=== PATIENT | male | born 1960 | race Caucasian/White ===

== ENCOUNTER 2018-12-20 11:54 | Inpatient (IN) | payer OTHER ==
[~2018-12-20] VITALS: Ht 182.9 cm; Wt 117.2 kg
[~2018-12-20 11:54] MED LIST: BACL10TA PO; BSP10T PO; CHLO500T2 PO; CLOT15CR6 TOP; CYCL10TA9 PO; GBPN300C PO; HYDR-229 PO; HYDR1TAB PO; LISI20TA PO; MUPI15CR TP; NAPR-243 PO; NAPR-915 PO; SULF1TAB35 PO; TRAM50TA2 PO; ZOLP5TAB PO
[2018-12-20] MEDS ORDERED: TRAZ-190 PO (12:11)
[2018-12-20] MEDS ORDERED: ONDA8TAB13 PO (12:11)
[2018-12-20] MEDS ORDERED: CEPH500C PO (12:11)
[2018-12-20] MEDS ORDERED: HYDR-700 PO (12:11)
[2018-12-20] MEDS ORDERED: HYDR-3816 PO (12:11)
[2018-12-20] MEDS ORDERED: fentaNYL INJECTION 100 MCG/2 ML AMP IVP ONE ×2 (13:00→14:00)
[2018-12-20] MEDS ORDERED: ceFAZolin INJECTION 1,000 MG in WATER (STERILE) FOR INJECTION 10 ML IV ONE (13:00)
[2018-12-20 13:09] LABS: BASOPHILS % (AUTO) 0 % (0-10); EOSINOPHILS # (AUTO) 0.3 10^3/uL (0.0-0.3); EOSINOPHILS % (AUTO) 3 % (0-10); HEMATOCRIT 36 % (40-54); HEMOGLOBIN 11.6 G/DL (13.3-17.7); LYMPHOCYTES # (AUTO) 1.1 X 10^3 (1.0-4.0); LYMPHOCYTES % (AUTO) 12 % (12-44); MEAN CORPUSCULAR HEMOGLOBIN 30 PG (25-34); MEAN CORPUSCULAR HGB CONC 32 G/DL (32-36); MEAN CORPUSCULAR VOLUME 95 FL (80-99); MEAN PLATELET VOLUME 10.4 FL (7.4-10.4); MONOCYTES % (AUTO) 11 % (0-12); NEUTROPHILS # (AUTO) 7.1 X 10^3 (1.8-7.8); NEUTROPHILS % (AUTO) 74 % (42-75); PLATELET COUNT 193 10^3/uL (130-400); RED CELL DISTRIBUTION WIDTH 13.5 % (10.0-14.5); WHITE BLOOD COUNT 9.6 10^3/uL (4.3-11.0)
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
[2018-12-20] MEDS ORDERED: LACTATED RINGERS 1,000 ML IV ONE (13:20)
[2018-12-20 13:23] LABS: ALANINE AMINOTRANSFERASE 87 U/L (0-55); ALKALINE PHOSPHATASE 92 U/L (40-136); BILIRUBIN,TOTAL 1.1 MG/DL (0.1-1.0); BUN/CREATININE RATIO 10; CALCIUM 9.8 MG/DL (8.5-10.1); CARBON DIOXIDE 28 MMOL/L (21-32); CHLORIDE 97 MMOL/L (98-107); CREATININE SERUM 1.09 MG/DL (0.60-1.30); GFR ESTIMATED > 60; GLUCOSE 143 MG/DL (70-105); MAGNESIUM 2.1 MG/DL (1.6-2.4); POTASSIUM 4.1 MMOL/L (3.6-5.0); SODIUM 138 MMOL/L (135-145); TOTAL PROTEIN 7.6 GM/DL (6.4-8.2)
[2018-12-20] MEDS ORDERED: VANCOMYCIN INJECTION 1,000 MG in NS (IVPB) 250 ML IV ONE (13:45)
[2018-12-20] MEDS ORDERED: PIPERACILLIN/TAZOBACTAM (BULK) 4.5 GM in NS (IVPB) 100 ML IV ONE (13:45)
[2018-12-20] MEDS ORDERED: KETOROLAC 30 MG/ML VIAL ONE (13:59)
[2018-12-20] MEDS ORDERED: KETOROLAC 30 MG/ML VIAL IVP ONE (14:00)
[2018-12-20] MEDS ORDERED: NS (IVPB) 250 ML ONE (14:33)
[2018-12-20] MEDS ORDERED: VANCOMYCIN 1000 MG/VIAL ONE (14:33)
[2018-12-20] MEDS ORDERED: HYDROcodone/APAP 10 MG/325 MG (LORTAB) TAB PO ONE ×2 (14:37→14:45)
--- NOTE | 2018-12-20 15:55 | NUR ---
PT ARRIVED TO FLOOR VIA CART FROM ED. A/OX4. FAMILY AT BEDSIDE. PT ORIENTED TO ROOM, CALL LIGHT. VSS. PT REPORTS PAIN 10/10. WILL GIVE PRN PAIN MEDICATION. PLAN OF CARE DISCUSSED WITH PT. CALL LIGHT WITHIN REACH.
[2018-12-20 16:00] VITALS: BP 136/86
[2018-12-20] MEDS ORDERED: VANCOMYCIN 1250 MG/NS 250 ML IVPB IV NR ×2 (16:11)
[2018-12-20] MEDS ORDERED: ACETAMINOPHEN 325 MG TABLET PO PRN (16:15)
[2018-12-20] MEDS ORDERED: ONDANSETRON 4 MG/2 ML (SDV) Z0FRAN IVP PRN (16:15)
[2018-12-20] MEDS ORDERED: LACTATED RINGERS 1,000 ML IV SCH (16:30)
[2018-12-20] MEDS: fentaNYL INJECTION 100 MCG/2 ML AMP IVP PRN ×2 (16:45→18:54)
--- NOTE | 2018-12-20 16:50 | NUR ---
PHARMACY TO DOSE VANCOMYCIN. 1G GIVEN IN ED, BOLUS WITH ADDITIONAL 1250MG THEN DOSE AT 1750MG BID. TROUGH ORDERED PRIOR TO 5TH DOSE ON 12/22 @1600 HOLD IF GREATER THAN 20 AND PHARMACY WILL ADJUST.
[2018-12-20 17:09] VITALS: BP 136/86
[2018-12-20] MEDS ORDERED: CALCIUM CARBONATE 500 MG (TUMS) TAB.CHEW PO PRN (17:15)
[2018-12-20] MEDS ORDERED: diphenhydrAMINE 25 MG TAB (BENADRYL) PO PRN (17:15)
[2018-12-20] MEDS ORDERED: IBUPROFEN TABLET 200 MG TAB PO PRN (17:15)
[2018-12-20] MEDS ORDERED: DOCUSATE SODIUM 100 MG (COLACE) CAP PO PRN (17:15)
[2018-12-20 20:00] VITALS: BP 118/68
[2018-12-20] MEDS: TEMAZEPAM 15 MG (RESTORIL) CAP PO PRN (20:47)
[2018-12-20] MEDS: SENNA W/DOCUSATE (SENOKOT S) TABLET PO SCH (20:47)
[2018-12-20] MEDS: traZODone 100 MG (DESYREL) TAB PO PRN (20:47)
[2018-12-20] MEDS: PIPERACILLIN/TAZO 4.5 GM/NS 100 ML IV SCH ×2 (20:48)
[2018-12-20] MEDS: ENOXAPARIN 40 MG/0.4 ML (LOVENOX) SYR SC SCH (20:48)
[2018-12-20] MEDS: NS IV 1000 ML 1,000 ML IV SCH (20:49)
[2018-12-21 00:14] VITALS: BP 130/84
[2018-12-21] MEDS: KETOROLAC 15 MG/ML VIAL IVP PRN ×3 (00:15→20:09)
[2018-12-21] MEDS: HYDROcodone/APAP 5 MG/325 MG (LORTAB) TAB PO PRN ×3 (00:15→14:33)
[2018-12-21 04:37] VITALS: BP 143/90
[2018-12-21] MEDS: PIPERACILLIN/TAZO 4.5 GM/NS 100 ML IV SCH ×6 (04:47→21:18)
[2018-12-21] MEDS: VANCOMYCIN 1,750 MG/NS 500 ML IVPB IV SCH ×4 (04:47→17:11)
[2018-12-21 06:45] LABS: BASOPHILS % (AUTO) 0 % (0-10); EOSINOPHILS # (AUTO) 0.5 10^3/uL (0.0-0.3); EOSINOPHILS % (AUTO) 6 % (0-10); HEMATOCRIT 31 % (40-54); HEMOGLOBIN 9.8 G/DL (13.3-17.7); LYMPHOCYTES # (AUTO) 1.1 X 10^3 (1.0-4.0); LYMPHOCYTES % (AUTO) 15 % (12-44); MEAN CORPUSCULAR HEMOGLOBIN 31 PG (25-34); MEAN CORPUSCULAR HGB CONC 32 G/DL (32-36); MEAN CORPUSCULAR VOLUME 96 FL (80-99); MEAN PLATELET VOLUME 10.3 FL (7.4-10.4); MONOCYTES % (AUTO) 14 % (0-12); NEUTROPHILS # (AUTO) 4.8 X 10^3 (1.8-7.8); NEUTROPHILS % (AUTO) 65 % (42-75); PLATELET COUNT 176 10^3/uL (130-400); RED CELL DISTRIBUTION WIDTH 13.3 % (10.0-14.5); WHITE BLOOD COUNT 7.4 10^3/uL (4.3-11.0)
[2018-12-21 07:07] LABS: ALBUMIN 3.2 GM/DL (3.2-4.5); BILIRUBIN,TOTAL 0.7 MG/DL (0.1-1.0); CALCIUM 8.5 MG/DL (8.5-10.1); CREATININE SERUM 1.92 MG/DL (0.60-1.30); POTASSIUM 3.9 MMOL/L (3.6-5.0); TOTAL PROTEIN 5.9 GM/DL (6.4-8.2)
[2018-12-21 08:00] VITALS: BP 135/85
[2018-12-21] MEDS: SENNA W/DOCUSATE (SENOKOT S) TABLET PO SCH ×2 (08:10→21:21)
[2018-12-21] MEDS: fentaNYL INJECTION 100 MCG/2 ML AMP IVP PRN ×5 (08:11→21:20)
[2018-12-21] MEDS ORDERED: CYCL10TA9 PO (08:21)
[2018-12-21] MEDS ORDERED: OMEP20TA33 PO (08:23)
--- NOTE | 2018-12-21 08:24 | NUR ---
SPOKE WITH THE PATIENT ABOUT HIS MEDICATIONS. WE WENT OVER THE EXT MED HX AND HE VERIFIED HOW HE TAKES THEM. HIS TRAZODONE AND HYDROXYZINE ARE WRITTEN TO TAKE 1/2 TO 1 TABLET, HE STATES HE TAKES 1 WHOLE TABLET OF EACH OF THEM. HE TAKES PRILOSEC OTC NEEDED.
[2018-12-21] MEDS: NS IV 1000 ML 1,000 ML IV SCH ×2 (09:03→21:19)
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
[2018-12-21 12:00] VITALS: BP 162/83
[2018-12-21 15:38] VITALS: BP 124/81
[2018-12-21] MEDS ORDERED: TROUGH ORDER-PHARMACY XX NR (16:00)
[2018-12-21 19:21] VITALS: BP 139/75
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
[2018-12-21] MEDS: ENOXAPARIN 40 MG/0.4 ML (LOVENOX) SYR SC SCH (21:19)
[2018-12-21] MEDS: traZODone 100 MG (DESYREL) TAB PO PRN (21:21)
[2018-12-21] MEDS: ALPRAZolam 0.25 MG (XANAX) TAB PO PRN (21:21)
[2018-12-22 00:20] VITALS: BP 135/75
[2018-12-22] MEDS: fentaNYL INJECTION 100 MCG/2 ML AMP IVP PRN ×5 (01:56→20:20)
[2018-12-22] MEDS: MELATONIN 3 MG TABLET PO PRN (01:56)
[2018-12-22] MEDS ORDERED: TROUGH ORDER-PHARMACY XX NR (04:00)
[2018-12-22 04:55] VITALS: BP 134/75
[2018-12-22] MEDS: HYDROcodone/APAP 5 MG/325 MG (LORTAB) TAB PO PRN (05:15)
[2018-12-22 05:25] LABS: BASOPHILS % (AUTO) 0 % (0-10); EOSINOPHILS # (AUTO) 0.6 10^3/uL (0.0-0.3); EOSINOPHILS % (AUTO) 8 % (0-10); HEMATOCRIT 29 % (40-54); HEMOGLOBIN 9.6 G/DL (13.3-17.7); LYMPHOCYTES % (AUTO) 14 % (12-44); MEAN CORPUSCULAR HEMOGLOBIN 31 PG (25-34); MEAN CORPUSCULAR HGB CONC 33 G/DL (32-36); MEAN CORPUSCULAR VOLUME 96 FL (80-99); MEAN PLATELET VOLUME 10.1 FL (7.4-10.4); MONOCYTES # (AUTO) 0.9 X 10^3 (0.0-1.0); MONOCYTES % (AUTO) 13 % (0-12); NEUTROPHILS # (AUTO) 4.4 X 10^3 (1.8-7.8); NEUTROPHILS % (AUTO) 64 % (42-75); PLATELET COUNT 198 10^3/uL (130-400); RED CELL DISTRIBUTION WIDTH 13.5 % (10.0-14.5); WHITE BLOOD COUNT 6.8 10^3/uL (4.3-11.0)
[2018-12-22 05:47] LABS: ALBUMIN 3.1 GM/DL (3.2-4.5); BILIRUBIN,TOTAL 0.7 MG/DL (0.1-1.0); CALCIUM 8.4 MG/DL (8.5-10.1); CREATININE SERUM 2.29 MG/DL (0.60-1.30); POTASSIUM 3.6 MMOL/L (3.6-5.0); TOTAL PROTEIN 5.9 GM/DL (6.4-8.2)
[2018-12-22] MEDS: PIPERACILLIN/TAZO 4.5 GM/NS 100 ML IV SCH ×6 (05:53→20:19)
[2018-12-22] MEDS: VANCOMYCIN 1,750 MG/NS 500 ML IVPB IV SCH ×2 (06:00)
[2018-12-22] MEDS: NS IV 1000 ML 1,000 ML IV SCH ×3 (07:30→22:49)
[2018-12-22] MEDS: SENNA W/DOCUSATE (SENOKOT S) TABLET PO SCH ×2 (07:34→20:20)
[2018-12-22 08:00] VITALS: BP 166/97
[2018-12-22] MEDS: fentaNYL PATCH 25 MCG (DURAGESIC) TD SCH (09:21)
[2018-12-22 12:00] VITALS: BP 166/97
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
[2018-12-22] MEDS: oxyCODONE/APAP 5/325MG (PERCOCET 5) TABLET PO PRN ×2 (12:32→17:31)
--- NOTE | 2018-12-22 15:15 | NUR ---
Pastoral care visit.
[2018-12-22 16:00] VITALS: BP 159/94
[2018-12-22] MEDS: KETOROLAC 15 MG/ML VIAL IVP PRN (17:39)
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
[2018-12-22 19:45] VITALS: BP 137/76
[2018-12-22] MEDS: ENOXAPARIN 40 MG/0.4 ML (LOVENOX) SYR SC SCH (20:19)
[2018-12-23 00:10] VITALS: BP 169/91
[2018-12-23] MEDS: oxyCODONE/APAP 5/325MG (PERCOCET 5) TABLET PO PRN ×5 (00:21→20:33)
[2018-12-23] MEDS: fentaNYL INJECTION 100 MCG/2 ML AMP IVP PRN ×5 (03:17→23:43)
[2018-12-23] MEDS: ALPRAZolam 0.25 MG (XANAX) TAB PO PRN ×2 (03:29→20:37)
[2018-12-23 04:00] VITALS: BP 137/82
[2018-12-23] MEDS: PIPERACILLIN/TAZO 4.5 GM/NS 100 ML IV SCH ×6 (04:17→20:34)
[2018-12-23] MEDS: KETOROLAC 15 MG/ML VIAL IVP PRN (05:44)
[2018-12-23 06:00] LABS: BASOPHILS % (AUTO) 0 % (0-10); EOSINOPHILS # (AUTO) 0.4 10^3/uL (0.0-0.3); EOSINOPHILS % (AUTO) 5 % (0-10); HEMATOCRIT 30 % (40-54); HEMOGLOBIN 9.8 G/DL (13.3-17.7); LYMPHOCYTES # (AUTO) 1.2 X 10^3 (1.0-4.0); LYMPHOCYTES % (AUTO) 17 % (12-44); MEAN CORPUSCULAR HEMOGLOBIN 31 PG (25-34); MEAN CORPUSCULAR HGB CONC 33 G/DL (32-36); MEAN CORPUSCULAR VOLUME 95 FL (80-99); MEAN PLATELET VOLUME 9.5 FL (7.4-10.4); MONOCYTES # (AUTO) 0.9 X 10^3 (0.0-1.0); MONOCYTES % (AUTO) 12 % (0-12); NEUTROPHILS # (AUTO) 4.7 X 10^3 (1.8-7.8); NEUTROPHILS % (AUTO) 65 % (42-75); PLATELET COUNT 235 10^3/uL (130-400); RED CELL DISTRIBUTION WIDTH 13.3 % (10.0-14.5); WHITE BLOOD COUNT 7.2 10^3/uL (4.3-11.0)
[2018-12-23 06:19] LABS: ALBUMIN 3.4 GM/DL (3.2-4.5); BILIRUBIN,TOTAL 0.7 MG/DL (0.1-1.0); CALCIUM 8.9 MG/DL (8.5-10.1); CREATININE SERUM 2.3 MG/DL (0.60-1.30); POTASSIUM 3.8 MMOL/L (3.6-5.0); TOTAL PROTEIN 6.4 GM/DL (6.4-8.2)
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
[2018-12-23 08:30] VITALS: BP 135/91
[2018-12-23] MEDS: SENNA W/DOCUSATE (SENOKOT S) TABLET PO SCH ×2 (08:51→20:33)
[2018-12-23] MEDS: NS IV 1000 ML 1,000 ML IV SCH ×2 (08:53→17:58)
[2018-12-23 12:00] VITALS: BP 144/86
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
--- NOTE | 2018-12-23 14:21 | Diagnostic Imaging Report ---
PROCEDURE: US left lower extremity venous. TECHNIQUE: Multiple real-time grayscale images were obtained over the left lower extremity in various projections. Additional duplex Doppler and color Doppler images were also obtained. INDICATION: Left leg swelling. FINDINGS: There is no evidence of a left lower extremity DVT. Left lower extremity deep venous system shows normal compressibility with normal response to augmentation and Valsalva. No fluid collection or mass is seen. There is some subcutaneous edema in the anterior left ankle region at the area of bruising. IMPRESSION: 1. No evidence of left lower extremity DVT. 2. Left ankle subcutaneous edema. Dictated by: Dictated on workstation # [id number]
--- NOTE | 2018-12-23 15:39 | Occ Therapy Progress Note ---
Therapy Progress Note OT talked with pt about his current performance with ADLs, pt reported he is able to get shorts on if he needed to, he can get out of bed and manage the IV pole to the bathroom, and he is able to complete oral hygiene without any issues. Pt concerned with ability to complete dressing, stating he is currently unable to put a shirt on secondary to the wounds on his arms limiting his ROM and increasing his pain. Pt was able to independently sit EOB, and manage IV manan e to the bathroom with no assistive device, and return to the bed to lay down without assistance from OT, no concerns noted with functional mobility and balance. Pt bent his right elbow to approximately 100 degrees flexion, this motion caused the wound on his elbow to open, bleeding slightly. Pt reported pain 10/10 after performing functional mobility to bathroom and returning to b ed, nursing notified of pain and wound. Pt laying in bed with call light in reach and nursing present, all needs met. Skilled OT services are not appropriate at this time secondary to UE movements causing wounds to reopen, pt in agreement indicating that he believes he will be able to complete all ADLs without issues once wounds are healed and his pain was under control, he states he has no further concerns at this time. 1, visit TATIANA LINDA OT Dec 23, 2018 15:39
[2018-12-23 16:00] VITALS: BP 145/98
[2018-12-23 20:16] VITALS: BP 149/95
[2018-12-23] MEDS: ENOXAPARIN 40 MG/0.4 ML (LOVENOX) SYR SC SCH (20:34)
[2018-12-23] MEDS: traZODone 100 MG (DESYREL) TAB PO PRN (20:37)
[2018-12-23] MEDS: TEMAZEPAM 15 MG (RESTORIL) CAP PO PRN (23:43)
[2018-12-24] VITALS (7 sets, daily range): BP systolic 135–178; BP diastolic 77–98
[2018-12-24] MEDS: oxyCODONE/APAP 5/325MG (PERCOCET 5) TABLET PO PRN ×5 (02:10→21:29)
[2018-12-24] MEDS: NS IV 1000 ML 1,000 ML IV SCH ×3 (04:38→21:45)
[2018-12-24] MEDS: PIPERACILLIN/TAZO 4.5 GM/NS 100 ML IV SCH ×6 (04:38→20:01)
[2018-12-24 05:19] LABS: BASOPHILS % (AUTO) 0 % (0-10); EOSINOPHILS # (AUTO) 0.3 10^3/uL (0.0-0.3); EOSINOPHILS % (AUTO) 4 % (0-10); HEMATOCRIT 28 % (40-54); HEMOGLOBIN 9.2 G/DL (13.3-17.7); LYMPHOCYTES # (AUTO) 0.8 X 10^3 (1.0-4.0); LYMPHOCYTES % (AUTO) 13 % (12-44); MEAN CORPUSCULAR HEMOGLOBIN 31 PG (25-34); MEAN CORPUSCULAR HGB CONC 33 G/DL (32-36); MEAN CORPUSCULAR VOLUME 94 FL (80-99); MEAN PLATELET VOLUME 9.7 FL (7.4-10.4); MONOCYTES % (AUTO) 15 % (0-12); NEUTROPHILS # (AUTO) 4.3 X 10^3 (1.8-7.8); NEUTROPHILS % (AUTO) 68 % (42-75); PLATELET COUNT 264 10^3/uL (130-400); RED CELL DISTRIBUTION WIDTH 13.2 % (10.0-14.5); WHITE BLOOD COUNT 6.4 10^3/uL (4.3-11.0)
[2018-12-24 06:03] LABS: ALBUMIN 3.1 GM/DL (3.2-4.5); BILIRUBIN,TOTAL 0.6 MG/DL (0.1-1.0); CALCIUM 8.8 MG/DL (8.5-10.1); CREATININE SERUM 2.06 MG/DL (0.60-1.30); POTASSIUM 3.7 MMOL/L (3.6-5.0); TOTAL PROTEIN 5.9 GM/DL (6.4-8.2)
[2018-12-24] MEDS: fentaNYL INJECTION 100 MCG/2 ML AMP IVP PRN ×5 (06:51→20:02)
[2018-12-24] MEDS: KETOROLAC 15 MG/ML VIAL IVP PRN ×2 (08:49→23:59)
[2018-12-24] MEDS: ALPRAZolam 0.25 MG (XANAX) TAB PO PRN ×2 (09:21→21:28)
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
--- NOTE | 2018-12-24 12:48 | Progress Note - Ortho ---
Progress Note Subjective Date of Exam 12/24/18 Chief Complaint Same HPI/Events since last exam Same Review of Systems Unchanged Allergies: Coded Allergies: codeine (Verified Allergy, Unknown, 12/08/15) Home Meds Reported Medications Omeprazole Magnesium (Prilosec Otc) 20 Mg Tablet.dr, 20 MG PO DAILY PRN for HEARTBURN, TAB 12/21/18 Cyclobenzaprine HCl (Cyclobenzaprine HCl) 10 Mg Tablet, 10 MG PO Q6H PRN for MUSCLE SPASMS, TAB 12/21/18 Trazodone HCl (Trazodone HCl) 100 Mg Tablet, 100 MG PO HS, TAB 12/20/18 Hydroxyzine HCl (Hydroxyzine HCl) 25 Mg Tablet, 25 MG PO BID PRN for ANXIETY, TAB 12/20/18 Hydrocodone/Acetaminophen (Hydrocodone-Acetamin 7.5-325) 1 Each Tablet, 1 TAB PO Q6H PRN for PAIN-MODERATE, TAB 12/20/18 Ondansetron (Ondansetron Odt) 8 Mg Tab.rapdis, 8 MG PO Q12H PRN for NAUSEA/VOMITING-1ST LINE, TAB 12/20/18 Cephalexin (Cephalexin) 500 Mg Capsule, 500 MG PO Q12H for 10 Days, CAP 10 DAY SUPPLY FILLED 12-17-18 12/20/18 Discontinued Reported Medications Baclofen (Baclofen) 10 Mg Tablet, PO UD, TAB 12/08/15 Zolpidem Tartrate (Ambien) 5 Mg Tablet, PO UD, TAB 12/08/15 Discontinued Scripts Sulfamethoxazole/Trimethoprim (Bactrim Ds Tablet) 1 Each Tablet, 1 EACH PO BID, #20 TAB Prov:ANGELA VALIENTE DO 12/08/15 Mupirocin Calcium (Bactroban) 15 Gm Cream..g., 15 GM TP BID, #22 TUBE Prov:STEFFANIEANGELA K DO 12/08/15 Cyclobenzaprine HCl (Cyclobenzaprine HCl) 10 Mg Tablet, 10 MG PO Q8H, #15 TAB Prov:STEFFANIEANGELA K DO 12/08/15 Naproxen (Naproxen) 500 Mg Tablet, 500 MG PO BID, #20 TAB Prov:ANGELA VALIENTE K DO 12/08/15 Objective Exam Constitutional: [] HEENT: [] Neck: [] Cardiovascular: [] Respiratory: [] Gastrointestinal: [] Genitourinary: [] Skin: [] Back/Spine: [] Extremities: [] Neurologic: [] Psychiatric: [] Hematologic/lymphatic/immunologic: [] No change Vital Signs Vital Signs Date Time Temp Pulse Resp B/P (MAP) Pulse Ox O2 Delivery O2 Flow Rate FiO2 12/24/18 11:57 36.9 78 20 170/90 (116) 95 Room Air 12/24/18 08:30 37.0 71 20 135/77 (96) 95 Room Air 12/24/18 04:55 36.5 96 20 150/86 (107) 73 Room Air 12/24/18 00:46 37.4 80 20 160/91 (114) 98 Room Air 12/23/18 21:00 Room Air 12/23/18 20:16 37.0 79 18 149/95 (113) 98 Room Air 12/23/18 16:00 37.0 80 20 145/98 (114) 97 Room Air I & O 12/24/18 07:00 Intake Total 2380 ml Balance 2380 ml Lab Results Laboratory Tests 12/24/18 04:30: White Blood Count 6.4, Red Blood Count 2.99L, Hemoglobin 9.2L, Hematocrit 28L, Mean Corpuscular Volume 94, Mean Corpuscular Hemoglobin 31, Mean Corpuscular Hemoglobin Concent 33, Red Cell Distribution Width 13.2, Platelet Count 264, Mean Platelet Volume 9.7, Neutrophils (%) (Auto) 68, Lymphocytes (%) (Auto) 13, Monocytes (%) (Auto) 15H, Eosinophils (%) (Auto) 4, Basophils (%) (Auto) 0, Neutrophils # (Auto) 4.3, Lymphocytes # (Auto) 0.8L, Monocytes # (Auto) 1.0, Eosinophils # (Auto) 0.3, Basophils # (Auto) 0.0, Sodium Level 141, Potassium Level 3.7, Chloride Level 107, Carbon Dioxide Level 22, Anion Gap 12, Blood Urea Nitrogen 18, Creatinine 2.06H, Estimat Glomerular Filtration Rate 33, BUN/Creatinine Ratio 9, Glucose Level 116H, Calcium Level 8.8, Corrected Calcium 9.5, Total Bilirubin 0.6, Aspartate Amino Transf (AST/SGOT) 31, Alanine Aminotransferase (ALT/SGPT) 38, Alkaline Phosphatase 98, Total Protein 5.9L, Albumin 3.1L Assessment and Plan Assessment No change Problem List No change Plan I was able to obtain records from [facility] from the ER visit of 12/16/2018. Mainly I was looking at the x-ray reports The CT scan of the head was negative for acute intracranial abnormality CT cervical spine showed narrowing of the disc spaces particularly C5-6 through C7-T1 with multilevel anterior and posterior vertebral body osteophytes. Also changes were noted at the uncovertebral and facet joints. No fractures were noted CT scan of the chest with contrast showed a small focal anterior pericardial effusion [address] scan abdomen and pelvis with contrast showed a right pelvic subcutaneous bruising and an ill-defined hematoma lateral to the right gluteal musculature. Also degenerative disc disease of the lumbar spine was noted at L1-2L4-5 Chest x-ray 1 view was negative for acute pulmonary disease X-ray left ankle showed no fractures was a fractured pin noted in the midfoot region X-ray left tibia and fibula show [id number] degenerative changes about the knee with no evidence of tibia or fibular fracture X-rays left knee showed mild to moderate degenerative changes with narrowing of the medial compartment with no fracture X-ray of the pelvis showed no fractures. Mild degenerative changes seen at both hips The x-rays were interpreted by Dr. Ousmane Foster and the CT scans were interpreted by Dr.Nidal Marisa ROTHMAN Also the laceration of the left knee was sutured and also a laceration of the right elbow was sutured Final Diagonsis same Level of the visit: Level 3 Clinical Quality Measures DVT/VTE Risk/Contraindication: Risk Factor Score Per Nursin RFS Level Per Nursing on Admit: 2=Moderate BOWEN GALLARDO MD Dec 24, 2018 12:48
[2018-12-24] MEDS: SENNA W/DOCUSATE (SENOKOT S) TABLET PO SCH ×3 (15:21→20:33)
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
[2018-12-24] MEDS: ENOXAPARIN 40 MG/0.4 ML (LOVENOX) SYR SC SCH (20:02)
[2018-12-24] MEDS: traZODone 100 MG (DESYREL) TAB PO PRN (21:29)
[2018-12-24] MEDS: TEMAZEPAM 15 MG (RESTORIL) CAP PO PRN (23:59)
[2018-12-25 00:37] VITALS: BP 155/86
[2018-12-25 04:45] VITALS: BP 157/90
[2018-12-25] MEDS: oxyCODONE/APAP 5/325MG (PERCOCET 5) TABLET PO PRN ×3 (05:26→17:18)
[2018-12-25] MEDS: PIPERACILLIN/TAZO 4.5 GM/NS 100 ML IV SCH ×4 (05:26→14:00)
[2018-12-25 05:50] LABS: BASOPHILS % (AUTO) 0 % (0-10); EOSINOPHILS # (AUTO) 0.3 10^3/uL (0.0-0.3); EOSINOPHILS % (AUTO) 5 % (0-10); HEMATOCRIT 28 % (40-54); HEMOGLOBIN 8.9 G/DL (13.3-17.7); LYMPHOCYTES % (AUTO) 17 % (12-44); MEAN CORPUSCULAR HEMOGLOBIN 30 PG (25-34); MEAN CORPUSCULAR HGB CONC 32 G/DL (32-36); MEAN CORPUSCULAR VOLUME 94 FL (80-99); MEAN PLATELET VOLUME 9.7 FL (7.4-10.4); MONOCYTES # (AUTO) 0.8 X 10^3 (0.0-1.0); MONOCYTES % (AUTO) 14 % (0-12); NEUTROPHILS # (AUTO) 3.7 X 10^3 (1.8-7.8); NEUTROPHILS % (AUTO) 64 % (42-75); PLATELET COUNT 290 10^3/uL (130-400); RED CELL DISTRIBUTION WIDTH 12.9 % (10.0-14.5); WHITE BLOOD COUNT 5.7 10^3/uL (4.3-11.0)
[2018-12-25 06:09] LABS: ALBUMIN 3.3 GM/DL (3.2-4.5); BILIRUBIN,TOTAL 0.6 MG/DL (0.1-1.0); CALCIUM 8.7 MG/DL (8.5-10.1); CREATININE SERUM 1.98 MG/DL (0.60-1.30); POTASSIUM 3.6 MMOL/L (3.6-5.0)
[2018-12-25 08:00] VITALS: BP 165/86
[2018-12-25] MEDS: SENNA W/DOCUSATE (SENOKOT S) TABLET PO SCH ×3 (08:26→21:54)
[2018-12-25] MEDS: KETOROLAC 15 MG/ML VIAL IVP PRN (08:27)
[2018-12-25] MEDS: fentaNYL PATCH 25 MCG (DURAGESIC) TD SCH (08:27)
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
[2018-12-25] MEDS ORDERED: FENTANYL PATCH REMOVAL TP SCH (08:59)
[2018-12-25] MEDS: NS IV 1000 ML 1,000 ML IV SCH ×2 (10:14→20:15)
--- NOTE | 2018-12-25 11:34 | Physical Therapy Progress Note ---
Therapy Progress Note Patient is up independently in [facility]. PT to dismiss patient from services at this time. SATURNINO HOWARD PT Dec 25, 2018 11:34
--- NOTE | 2018-12-25 11:58 | NUR ---
IRF Evaluation Order received to evaluate patient for the ARU. According to PT, patient is up independently in the hallway; therefore, patient does not require intensive therapies, at this time. Thank you for this referral.
[2018-12-25 12:00] VITALS: BP 150/85
[2018-12-25 16:00] VITALS: BP 160/88
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
[2018-12-25] MEDS: fentaNYL INJECTION 100 MCG/2 ML AMP IVP PRN (20:30)
[2018-12-25] MEDS: TEMAZEPAM 15 MG (RESTORIL) CAP PO PRN (21:54)
[2018-12-25] MEDS: ENOXAPARIN 40 MG/0.4 ML (LOVENOX) SYR SC SCH (21:54)
[2018-12-25] MEDS: ALPRAZolam 0.25 MG (XANAX) TAB PO PRN (21:54)
[2018-12-25] MEDS: traZODone 100 MG (DESYREL) TAB PO PRN (21:54)
[2018-12-26] VITALS: BP 153/88
[2018-12-26] MEDS: oxyCODONE/APAP 5/325MG (PERCOCET 5) TABLET PO PRN ×3 (03:13→13:43)
[2018-12-26] MEDS: MELATONIN 3 MG TABLET PO PRN (03:14)
[2018-12-26] MEDS: NS IV 1000 ML 1,000 ML IV SCH (05:30)
[2018-12-26 06:34] LABS: BASOPHILS % (AUTO) 0 % (0-10); EOSINOPHILS # (AUTO) 0.4 10^3/uL (0.0-0.3); EOSINOPHILS % (AUTO) 5 % (0-10); HEMATOCRIT 28 % (40-54); HEMOGLOBIN 8.8 G/DL (13.3-17.7); LYMPHOCYTES # (AUTO) 1.1 X 10^3 (1.0-4.0); LYMPHOCYTES % (AUTO) 15 % (12-44); MEAN CORPUSCULAR HEMOGLOBIN 30 PG (25-34); MEAN CORPUSCULAR HGB CONC 32 G/DL (32-36); MEAN CORPUSCULAR VOLUME 94 FL (80-99); MEAN PLATELET VOLUME 9.5 FL (7.4-10.4); MONOCYTES % (AUTO) 14 % (0-12); NEUTROPHILS # (AUTO) 4.8 X 10^3 (1.8-7.8); NEUTROPHILS % (AUTO) 67 % (42-75); PLATELET COUNT 341 10^3/uL (130-400); RED CELL DISTRIBUTION WIDTH 13.1 % (10.0-14.5); WHITE BLOOD COUNT 7.2 10^3/uL (4.3-11.0)
[2018-12-26 07:00] LABS: ALBUMIN 3.3 GM/DL (3.2-4.5); BILIRUBIN,TOTAL 0.5 MG/DL (0.1-1.0); CALCIUM 8.8 MG/DL (8.5-10.1); CREATININE SERUM 1.83 MG/DL (0.60-1.30); POTASSIUM 3.6 MMOL/L (3.6-5.0); TOTAL PROTEIN 6.1 GM/DL (6.4-8.2)
[2018-12-26 08:00] VITALS: BP 163/89
[2018-12-26] MEDS: SENNA W/DOCUSATE (SENOKOT S) TABLET PO SCH (08:49)
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
[2018-12-26] MEDS: fentaNYL INJECTION 100 MCG/2 ML AMP IVP PRN ×2 (11:58→13:43)
[2018-12-26] MEDS ORDERED: OXYC1TAB87 PO (12:41)
[2018-12-26] MEDS ORDERED: FENT1PAT8 TD (12:41)
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
== END 2018-12-26 13:50 | disposition home or self-care (01) | DRG 603 ==
LOC: EDUNIT# 11:54 → ER 11:55 → OBSVTOIN 13:50 → 4TH 13:50
PROVIDERS: ADMIT Internal Medicine; ATTEND Internal Medicine
DX: L03.113 Cellulitis of right upper limb (principal); N17.9 Acute kidney failure, unspecified; M54.9 Dorsalgia, unspecified; G89.29 Other chronic pain; F41.9 Anxiety disorder, unspecified; G47.9 Sleep disorder, unspecified; F17.210 Nicotine dependence, cigarettes, uncomplicated; S60.511A Abrasion of right hand, initial encounter; S90.415A Abrasion, left lesser toe(s), initial encounter; S80.212A Abrasion, left knee, initial encounter; S40.211A Abrasion of right shoulder, initial encounter; Z23 Encounter for immunization; S13.4XXA Sprain of ligaments of cervical spine, initial encounter; S43.51XA Sprain of right acromioclavicular joint, initial encounter; G43.909 Migraine, unspecified, not intractable, without status migrainosus; V87.7XXA Person injured in collision between other specified motor vehicles (traffic), initial encounter
CPT/HCPCS: 36415; 80053; 80202; 83735; 85025; 96361; 96365; 96367; 96375

== ENCOUNTER → 2019-01-01 | Outpatient (CLI) | payer OTHER ==
[~2019-01-01] MED LIST changes: +CEPH500C PO; +FENT1PAT8 TD; +HYDR-3816 PO; +HYDR-700 PO; +OMEP20TA33 PO; +ONDA8TAB13 PO; +OXYC1TAB87 PO; +TRAZ-190 PO
== END ==
LOC: WOUNDCARE 08:50
PROVIDERS: ATTEND Surgery
DX: S41.011A Laceration without foreign body of right shoulder, initial encounter (principal); S51.812A Laceration without foreign body of left forearm, initial encounter; S81.012A Laceration without foreign body, left knee, initial encounter; S31.010A Laceration without foreign body of lower back and pelvis without penetration into retroperitoneum, initial encounter; L03.319 Cellulitis of trunk, unspecified; I96 Gangrene, not elsewhere classified; V20.4XXA Motorcycle driver injured in collision with pedestrian or animal in traffic accident, initial encounter
CPT/HCPCS: 99215

== ENCOUNTER → 2019-01-06 | Outpatient (CLI) | payer OTHER | LOC: WOUNDCARE 15:17 | PROVIDERS: ATTEND Surgery | DX: S70.11XA Contusion of right thigh, initial encounter (principal); S41.011A Laceration without foreign body of right shoulder, initial encounter; S51.812A Laceration without foreign body of left forearm, initial encounter; S81.012A Laceration without foreign body, left knee, initial encounter; S31.010A Laceration without foreign body of lower back and pelvis without penetration into retroperitoneum, initial encounter; L03.319 Cellulitis of trunk, unspecified; I96 Gangrene, not elsewhere classified; V20.4XXA Motorcycle driver injured in collision with pedestrian or animal in traffic accident, initial encounter | CPT/HCPCS: 99215 ==

== ENCOUNTER → 2019-01-13 | Outpatient (CLI) | payer OTHER ==
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
== END ==
LOC: RAD 13:40
PROVIDERS: ATTEND Surgery
DX: S70.11XA Contusion of right thigh, initial encounter (principal); V29.9XXA Motorcycle rider (driver) (passenger) injured in unspecified traffic accident, initial encounter
CPT/HCPCS: 76881

== ENCOUNTER → 2019-01-13 | Outpatient (CLI) | payer OTHER | LOC: WOUNDCARE 15:20 | PROVIDERS: ATTEND Surgery | DX: S41.011A Laceration without foreign body of right shoulder, initial encounter (principal); S51.812A Laceration without foreign body of left forearm, initial encounter; S81.012A Laceration without foreign body, left knee, initial encounter; S70.11XA Contusion of right thigh, initial encounter; I96 Gangrene, not elsewhere classified; V20.4XXA Motorcycle driver injured in collision with pedestrian or animal in traffic accident, initial encounter | CPT/HCPCS: 99213 ==

== ENCOUNTER → 2019-01-20 | Outpatient (CLI) | payer OTHER | LOC: WOUNDCARE 15:07 | PROVIDERS: ATTEND Surgery | DX: I96 Gangrene, not elsewhere classified (principal); S41.011A Laceration without foreign body of right shoulder, initial encounter; S81.012A Laceration without foreign body, left knee, initial encounter; S70.11XA Contusion of right thigh, initial encounter; V20.4XXA Motorcycle driver injured in collision with pedestrian or animal in traffic accident, initial encounter | CPT/HCPCS: 11042 ==

== ENCOUNTER → 2019-02-03 | Outpatient (CLI) | payer OTHER | LOC: WOUNDCARE 15:19 | PROVIDERS: ATTEND Surgery | DX: I96 Gangrene, not elsewhere classified (principal); S41.011A Laceration without foreign body of right shoulder, initial encounter | CPT/HCPCS: 99213 ==